=== PATIENT | male | born 1955 | race Caucasian/White ===

== ENCOUNTER → 2017-02-02 | Day surgery (SDC) | payer BC ==
[~2017-02-02] MED LIST: ATORVASTATIN CA10 MG PO; CALCIUM 600 +1 EAC1 PO; CHLORTHALIDONE25 MG PO; COUMADIN5 MG PO; DHEA; DITROPAN XL5 M2 PO; DMAE; FISH OIL 1,0001 EAC3 PO; FLEXERIL PO; FLOMAX0.4 MG PO; GLUCOSAMINE; GLUCOSAMINE CH1 EAC5; IBUPROFEN PO; JANTOVEN7.5 MG PO; LISINOPRIL PO; SIMVASTATIN40 MG PO; SLO-NIACIN500 MG PO; VITAMIN D35000 UNI1 PO; [UNRECOGNIZED DRUG - OTHER]; [UNRECOGNIZED DRUG - OTHER]; [UNRECOGNIZED DRUG - OTHER]
--- NOTE | ~2017-02-02 | OR ---
Unit #: [id number] #: [id number] Patient: BEBA HARDWICK [id number] [address] [address] [id number] O MR#: [id number] NAME: BEBA HARDWICK. ROOM: Date of Procedure: 02/02/2017 Admission Date: 02/02/2017 Surgeon: Roderick Sal M.D. : 1955 Attending Physician: Roderick Sal M.D. Primary Care Physician: Mesha Resendiz M.D. OPERATIVE REPORT JOB NOTE: CC: DR. MESHA RESENDIZ PREOPERATIVE DIAGNOSES The patient has come for surveillance colonoscopy. He has personal history of colon polyps removed in the past. PROCEDURES PERFORMED Colonoscopy and polypectomy. POSTOPERATIVE DIAGNOSES 1. The patient had 4 polyps, one each in the proximal and mid ascending colon and 2 in the distal ascending colon near the hepatic flexure. The polyps ranged in size from 7 mm to 1.8 cm. All were sessile and removed using snare polypectomy. 2. Rest of the examination up to cecum was normal. The quality of the prep was good. RECOMMENDATIONS 1. Follow up results of polyp histology. 2. Repeat colonoscopy in 5 years. SEDATION USED MAC. DESCRIPTION OF PROCEDURE Following detailed explanation of potential risks and complications of a colonoscopy, namely perforation, bleeding, and complications related to sedation, the patient was brought to GI lab and laid in the left lateral decubitus position. A digital rectal examination was performed, which was normal. Lubricated tip of the Olympus video colonoscope was inserted through the anus and advanced under direct vision. The scope was advanced and passed up to sigmoid into descending colon. No diverticula were seen in this area. The scope tip was then navigated all the way up to cecum with visualization of the ileocecal valve and the appendiceal orifice. Preparation was good with good visualization and photodocumentation was obtained. Successive segments of the colonic mucosa were examined upon withdrawal. A total of 4 polyps were found, one each in the proximal mid and ascending colon and 2 in the distal ascending colon near the hepatic flexure. The polyps ranged in size from 7 mm to 1.8 cm each. All were removed using snare polypectomy. They were retrieved and sent for histology. Excellent hemostasis was achieved and photodocumentation was obtained. No additional polyps noted. The patient did not have any Unit #: [id number] #: [id number] Patient: BEBA HARDWICK diverticulosis nor any hemorrhoids. The scope was then withdrawn. The patient returned to recovery area. He tolerated the procedure without any postprocedure complications. Dictated by... Miladis Cerrato/lasha TD: 02/02/2017 12:28 JOB #: [id number] OPERATIVE REPORT Page 1 of 1 X Roderick Sal MD X PROCEDURE OPERATIVE NOTE
== END | disposition home or self-care (01) ==
LOC: COPS 06:41
DX: Z12.11 Encounter for screening for malignant neoplasm of colon (principal); D12.2 Benign neoplasm of ascending colon; E11.9 Type 2 diabetes mellitus without complications; M81.0 Age-related osteoporosis without current pathological fracture; N40.0 Benign prostatic hyperplasia without lower urinary tract symptoms; Z86.718 Personal history of other venous thrombosis and embolism; Z86.010 Personal history of colon polyps; Z87.440 Personal history of urinary (tract) infections; Z79.899 Other long term (current) drug therapy; Z98.41 Cataract extraction status, right eye; Z98.42 Cataract extraction status, left eye; Z96.642 Presence of left artificial hip joint; Z98.890 Other specified postprocedural states
CPT/HCPCS: 82947; 88305; J2250